=== PATIENT | male | born 1940 | race Caucasian/White ===

== ENCOUNTER → 2016-08-10 | Outpatient (CLI) | payer MEDICARE, OTHER ==
[2016-08-10 12:11] LABS: Basophils # (auto) 0.1 uL; Basophils % (auto) 2.8 % (0.0-2.0); Eosinophils # (auto) 0.2 uL; Eosinophils % (auto) 4.5 % (0.0-7.0); Hematocrit 39.3 % (41.0-53.0); Hemoglobin 13.2 g/dL (13.5-17.5); Lymphocytes # (auto) 1.4 uL; Mean Corpuscular Hemoglobin 33.1 pg (28.0-32.0); Mean Corpuscular Hgb Conc. 33.6 g/dL (32.0-36.0); Mean Corpuscular Volume 98.6 fL (80.0-100.0); Mean Platelet Volume 8.4 fL (7.4-10.4); Monocytes # (auto) 0.4 uL; Monocytes % (auto) 9.5 % (0.0-12.0); Neutrophils % (auto) 49.2 % (37.0-80.0); Platelet Count (auto) 229 10^3/uL (140-450); Red Cell Distribution Width 12.4 % (11.6-16.0); Urine Bilirubin Negative (Negative); Urine Blood Negative /uL (Negative); Urine Color Colorless (Yellow); Urine Glucose Normal (Normal); Urine Ketone Negative (Negative); Urine Nitrite Negative (Negative); Urine Urobilinogen Normal (Negative); White Blood Cell 4.1 10^3/uL (4.4-10.8)
[2016-08-10 12:52] LABS: Albumin 3.8 g/dL (3.4-5.0); Bilirubin, Direct 0.1 mg/dL (0-0.2); Bilirubin, Total 0.5 mg/dL (0.2-1.0); Calcium 8.7 mg/dL (8.5-10.1); Total Protein 7.2 g/dL (6.4-8.2)
== END | disposition home or self-care (01) ==
LOC: LAB 08:57
PROVIDERS: ATTEND Internal Medicine Cardiovascular Disease
DX: I10 Essential (primary) hypertension (principal); E78.00 Pure hypercholesterolemia, unspecified; K74.1 Hepatic sclerosis; E11.9 Type 2 diabetes mellitus without complications; R97.20 Elevated prostate specific antigen [PSA]; R53.81 Other malaise; E03.9 Hypothyroidism, unspecified; D64.9 Anemia, unspecified; E55.9 Vitamin D deficiency, unspecified; N39.0 Urinary tract infection, site not specified
CPT/HCPCS: 36415; 80048; 80061; 80076; 81003; 82306; 83036; 84153; 84403; 84443; 85025

== ENCOUNTER → 2017-05-09 | Outpatient (CLI) | payer MEDICARE, OTHER ==
[2017-05-09 12:18] LABS: Urine Bilirubin Negative (Negative); Urine Blood Negative /uL (Negative); Urine Color Yellow (Yellow); Urine Glucose Normal (Normal); Urine Ketone Negative (Negative); Urine Nitrite Negative (Negative); Urine Urobilinogen Normal (Negative); Urine pH 6.5 (5.0-8.0)
[2017-05-09 12:21] LABS: Basophils # (auto) 0 uL; Basophils % (auto) 0.9 % (0.0-2.0); Eosinophils # (auto) 0.2 uL; Eosinophils % (auto) 2.9 % (0.0-7.0); Hematocrit 40.1 % (41.0-53.0); Hemoglobin 13.5 g/dL (13.5-17.5); Lymphocytes # (auto) 1.6 uL; Lymphocytes % (auto) 29.3 % (10.0-50.0); Mean Corpuscular Hgb Conc. 33.6 g/dL (32.0-36.0); Mean Corpuscular Volume 101.1 fL (80.0-100.0); Mean Platelet Volume 8.3 fL (6.9-10.8); Monocytes # (auto) 0.5 uL; Monocytes % (auto) 9.4 % (0.0-12.0); Neutrophils # (auto) 3.1 uL; Neutrophils % (auto) 57.5 % (37.0-80.0); Nucleated Red Blood Cells % 0.2 %; Platelet Count (auto) 239 10^3/uL (140-450); White Blood Cell 5.4 10^3/uL (4.4-10.8)
[2017-05-09 12:35] LABS: BUN/Creatinine Ratio 16.7; Bilirubin, Direct 0.1 mg/dL (0-0.2); Bilirubin, Total 0.4 mg/dL (0.2-1.0); Calcium 9.8 mg/dL (8.5-10.1); Potassium 4.3 mmol/L (3.5-5.1); Total Protein 8.3 g/dL (6.4-8.2)
[2017-05-10 06:07] LABS: Prostate Specific Antigen 5.6 ng/mL (0.0-4.0)
[2017-05-10 08:06] LABS: PSA Free 1.87 ng/mL
== END | disposition home or self-care (01) ==
LOC: LAB 09:18
PROVIDERS: ATTEND Internal Medicine Cardiovascular Disease
DX: I10 Essential (primary) hypertension (principal); E78.00 Pure hypercholesterolemia, unspecified; K74.1 Hepatic sclerosis; E11.9 Type 2 diabetes mellitus without complications; R97.20 Elevated prostate specific antigen [PSA]; R53.81 Other malaise; D64.9 Anemia, unspecified; N39.0 Urinary tract infection, site not specified
CPT/HCPCS: 36415; 80048; 80061; 80076; 81003; 82306; 83036; 84153; 84154; 84403; 84443; 85025

== ENCOUNTER 2017-07-11 22:58 | Emergency (ER) | payer MEDICARE, OTHER ==
[~2017-07-11] VITALS: Ht 167.6 cm; Wt 75.3 kg
[2017-07-12 00:09] LABS: Basophils # (auto) 0 uL; Basophils % (auto) 0.4 % (0.0-2.0); Eosinophils # (auto) 0 uL; Eosinophils % (auto) 0.1 % (0.0-7.0); Hemoglobin 12.9 g/dL (13.5-17.5); Lymphocytes # (auto) 0.6 uL; Mean Corpuscular Hemoglobin 34.4 pg (28.0-32.0); White Blood Cell 9.1 10^3/uL (4.4-10.8)
[2017-07-12 00:11] LABS: Hematocrit 37.2 % (41.0-53.0); Lymphocytes % (auto) 6.4 % (10.0-50.0); Mean Corpuscular Hgb Conc. 34.6 g/dL (32.0-36.0); Mean Corpuscular Volume 99.5 fL (80.0-100.0); Mean Platelet Volume 7.5 fL (6.9-10.8); Monocytes # (auto) 1.1 uL; Monocytes % (auto) 11.8 % (0.0-12.0); Neutrophils # (auto) 7.4 uL; Neutrophils % (auto) 81.3 % (37.0-80.0); Platelet Count (auto) 221 10^3/uL (140-450); Red Cell Distribution Width 13.6 % (11.8-14.3)
[2017-07-12 00:22] LABS: INR 0.92 (0.9-1.15); Partial Thromboplastin Time 26.9 sec (22.64-33.71)
[2017-07-12 00:26] LABS: Albumin 3.7 g/dL (3.4-5.0); Anion Gap 9 (5-15); Blood Urea Nitrogen 18 mg/dL (7-18); Calcium 8.6 mg/dL (8.5-10.1); Carbon Dioxide 24 mmol/L (21-32); Chloride 97 mmol/L (98-107); GFR African American 76 mL/min; GFR Non-African American 62 mL/min; Glucose 114 mg/dL (74-106); Sodium 130 mmol/L (136-145)
[2017-07-12 00:32] LABS: Alkaline Phosphatase 66 U/L (45-117); Aspartate Aminotransferase 18 U/L (15-37); Bilirubin, Total 0.7 mg/dL (0.2-1.0); Total Protein 7.5 g/dL (6.4-8.2)
[2017-07-12 00:34] LABS: B-Type Natriuretic Peptide 77.67 pg/mL (0-100)
[2017-07-12 00:42] LABS: Temperature: 22.7 C (20.0-25.0)
[2017-07-12] MEDS ORDERED: ONDANSETRON HCL 4 MG/2 ML VIAL IV ONE (01:00)
[2017-07-12] MEDS ORDERED: MORPHINE SULF INJ 2 MG/ML SYRINGE 1ML IV ONE ×2 (01:00→04:45)
[2017-07-12 03:27] VITALS: BP 135/68
== END 2017-07-12 05:24 | disposition home or self-care (01) ==
LOC: ER 22:59
DX: S70.11XA Contusion of right thigh, initial encounter (principal); M25.561 Pain in right knee; M25.551 Pain in right hip; I11.0 Hypertensive heart disease with heart failure; I50.9 Heart failure, unspecified; W19.XXXA Unspecified fall, initial encounter; Y93.01 Activity, walking, marching and hiking; Y92.89 Other specified places as the place of occurrence of the external cause; Y99.8 Other external cause status
CPT/HCPCS: 36415; 73502; 73560; 73700; 80053; 83880; 84484; 85025; 85610; 85730; 93005; 96374; 96375; 96376; 99285; J2270; J2405

== ENCOUNTER → 2017-09-20 | Outpatient (CLI) | payer MEDICARE, OTHER ==
[2017-09-20 12:38] LABS: Urine Blood Negative /uL (Negative); Urine Specific Gravity 1.014 (1.001-1.035)
[2017-09-20 12:39] LABS: Basophils # (auto) 0 uL; Basophils % (auto) 1.1 % (0.0-2.0); Eosinophils # (auto) 0.2 uL; Eosinophils % (auto) 5.2 % (0.0-7.0); Hematocrit 37.5 % (41.0-53.0); Hemoglobin 12.6 g/dL (13.5-17.5); Lymphocytes # (auto) 1.6 uL; Lymphocytes % (auto) 37.9 % (10.0-50.0); Mean Corpuscular Hemoglobin 33.3 pg (28.0-32.0); Mean Corpuscular Hgb Conc. 33.5 g/dL (32.0-36.0); Mean Corpuscular Volume 99.4 fL (80.0-100.0); Monocytes # (auto) 0.4 uL; Monocytes % (auto) 10.3 % (0.0-12.0); Neutrophils # (auto) 1.9 uL; Neutrophils % (auto) 45.5 % (37.0-80.0); Nucleated Red Blood Cells % 0.3 %; Platelet Count (auto) 230 10^3/uL (140-450); Red Blood Cells 3.77 10^6/uL (4.5-5.90); Red Cell Distribution Width 12.9 % (11.8-14.3); White Blood Cell 4.2 10^3/uL (4.4-10.8)
== END | disposition home or self-care (01) ==
LOC: LAB 08:26
PROVIDERS: ATTEND Internal Medicine Cardiovascular Disease
DX: C61 Malignant neoplasm of prostate (principal); D64.9 Anemia, unspecified; N39.0 Urinary tract infection, site not specified
CPT/HCPCS: 36415; 81003; 84153; 84154; 85025

== ENCOUNTER → 2017-11-14 | Outpatient (CLI) | payer MEDICARE, OTHER | END | disposition home or self-care (01) | LOC: LAB 09:46 | PROVIDERS: ATTEND Internal Medicine Cardiovascular Disease | DX: C61 Malignant neoplasm of prostate (principal); I10 Essential (primary) hypertension; E11.9 Type 2 diabetes mellitus without complications | CPT/HCPCS: 84153 ==

== ENCOUNTER → 2018-03-21 | Outpatient (CLI) | payer MEDICARE, BC ==
[2018-03-21 12:05] LABS: Eosinophils # (auto) 0.3 uL; Nucleated Red Blood Cells % 0.6 %
[2018-03-21 12:08] LABS: Basophils # (auto) 0 uL; Basophils % (auto) 1.1 % (0.0-2.0); Eosinophils % (auto) 7.3 % (0.0-7.0); Hematocrit 35.2 % (41.0-53.0); Hemoglobin 12.3 g/dL (13.5-17.5); Lymphocytes # (auto) 1.2 uL; Lymphocytes % (auto) 29.9 % (10.0-50.0); Mean Corpuscular Hemoglobin 35.1 pg (28.0-32.0); Mean Corpuscular Hgb Conc. 34.9 g/dL (32.0-36.0); Mean Corpuscular Volume 100.6 fL (80.0-100.0); Monocytes # (auto) 0.5 uL; Monocytes % (auto) 12.6 % (0.0-12.0); Neutrophils % (auto) 49.1 % (37.0-80.0); Platelet Count (auto) 229 10^3/uL (140-450); Red Cell Distribution Width 14.3 % (11.8-14.3)
[2018-03-21 12:14] LABS: Urine Blood Negative /uL (Negative); Urine Specific Gravity 1.016 (1.001-1.035)
[2018-03-21 12:20] LABS: Albumin 3.5 g/dL (3.4-5.0); BUN/Creatinine Ratio 16.4; Bilirubin, Total 0.6 mg/dL (0.2-1.0); Calcium 8.7 mg/dL (8.5-10.1); Potassium 4.1 mmol/L (3.5-5.1); Total Protein 7.1 g/dL (6.4-8.2)
[2018-03-21 12:26] LABS: Free T4 (Free Thyroxine) 1.14 ng/dL (0.89-1.76)
[2018-03-21 12:57] LABS: Prostate Specific Antigen 6.85 ng/mL (0.0-4.0)
== END | disposition home or self-care (01) ==
LOC: LAB 08:15
PROVIDERS: ATTEND Internal Medicine
DX: Z00.01 Encounter for general adult medical examination with abnormal findings (principal); I11.0 Hypertensive heart disease with heart failure; I50.9 Heart failure, unspecified; E03.9 Hypothyroidism, unspecified; E11.9 Type 2 diabetes mellitus without complications; E55.9 Vitamin D deficiency, unspecified; E29.1 Testicular hypofunction; C61 Malignant neoplasm of prostate; D51.9 Vitamin B12 deficiency anemia, unspecified; N39.0 Urinary tract infection, site not specified
CPT/HCPCS: 36415; 80053; 80061; 81003; 82306; 82607; 83036; 84153; 84154; 84403; 84439; 84443; 85025

== ENCOUNTER → 2018-06-21 | Outpatient (CLI) | payer MEDICARE, BC ==
[~2018-06-21] VITALS: Ht 160 cm; Wt 77.1 kg
[~2018-06-21] MED LIST: ADENOSINE 90 MG/30 ML INJ IV ONE
== END | disposition home or self-care (01) ==
LOC: Rad HDHVI 13:38
PROVIDERS: ATTEND Internal Medicine
DX: I11.0 Hypertensive heart disease with heart failure (principal); I50.9 Heart failure, unspecified; E78.5 Hyperlipidemia, unspecified; M48.00 Spinal stenosis, site unspecified
CPT/HCPCS: 78452; 93005; 96374; 96375; A9500; J0153

== ENCOUNTER → 2018-08-14 | Outpatient (CLI) | payer MEDICARE, BC ==
[2018-08-14 12:22] LABS: Urine Blood Negative /uL (Negative); Urine Specific Gravity 1.006 (1.001-1.035)
[2018-08-14 12:23] LABS: Basophils # (auto) 0 uL; Basophils % (auto) 1.3 % (0.0-2.0); Eosinophils # (auto) 0.2 uL; Hemoglobin 12.5 g/dL (13.5-17.5); Lymphocytes # (auto) 1.4 uL; Neutrophils # (auto) 1.7 uL; White Blood Cell 3.8 10^3/uL (4.4-10.8)
[2018-08-14 12:26] LABS: Eosinophils % (auto) 5.9 % (0.0-7.0); Hematocrit 36.6 % (41.0-53.0); Lymphocytes % (auto) 37.3 % (10.0-50.0); Mean Corpuscular Hemoglobin 34.3 pg (28.0-32.0); Mean Corpuscular Hgb Conc. 34.3 g/dL (32.0-36.0); Monocytes # (auto) 0.4 uL; Monocytes % (auto) 11.7 % (0.0-12.0); Neutrophils % (auto) 43.8 % (37.0-80.0); Nucleated Red Blood Cells % 0.4 %; Platelet Count (auto) 195 10^3/uL (140-450); Red Blood Cells 3.66 10^6/uL (4.5-5.90)
[2018-08-14 12:42] LABS: Potassium 4.4 mmol/L (3.5-5.1)
[2018-08-14 12:52] LABS: Albumin 3.8 g/dL (3.4-5.0); BUN/Creatinine Ratio 12.6; Bilirubin, Total 0.6 mg/dL (0.2-1.0); Calcium 8.6 mg/dL (8.5-10.1); Total Protein 7.3 g/dL (6.4-8.2)
[2018-08-14 12:53] LABS: Free T4 (Free Thyroxine) 1.27 ng/dL (0.89-1.76)
[2018-08-14 13:16] LABS: Prostate Specific Antigen 4.3 ng/mL (0.0-4.0)
== END | disposition home or self-care (01) ==
LOC: LAB 08:13
PROVIDERS: ATTEND Internal Medicine
DX: E03.9 Hypothyroidism, unspecified (principal); E55.9 Vitamin D deficiency, unspecified; E11.9 Type 2 diabetes mellitus without complications; E29.1 Testicular hypofunction; C61 Malignant neoplasm of prostate; D51.9 Vitamin B12 deficiency anemia, unspecified; N39.0 Urinary tract infection, site not specified
CPT/HCPCS: 36415; 80053; 80061; 81003; 82306; 82607; 83036; 84153; 84154; 84403; 84439; 84443; 85025; 87086

== ENCOUNTER → 2018-10-10 | Outpatient (CLI) | payer MEDICARE, BC | END | disposition home or self-care (01) | LOC: LAB 08:56 | PROVIDERS: ATTEND Internal Medicine | DX: C61 Malignant neoplasm of prostate (principal) | CPT/HCPCS: 84153; 84154 ==

== ENCOUNTER → 2018-10-20 | Outpatient (CLI) | payer MEDICARE, BC ==
[2018-10-20 11:58] LABS: Hematocrit 37.1 % (41.0-53.0); Hemoglobin 12.4 g/dL (13.5-17.5); Mean Corpuscular Hemoglobin 33.8 pg (28.0-32.0); Mean Corpuscular Hgb Conc. 33.4 g/dL (32.0-36.0); Mean Corpuscular Volume 101.1 fL (80.0-100.0); Platelet Count (auto) 192 10^3/uL (140-450); Red Blood Cells 3.67 10^6/uL (4.5-5.90); Red Cell Distribution Width 13.4 % (11.8-14.3); White Blood Cell 3.1 10^3/uL (4.4-10.8)
[2018-10-20 12:19] LABS: Basophils % (auto) 1.2 % (0.0-2.0); Eosinophils % (auto) 5.6 % (0.0-7.0); Lymphocytes # (auto) 1.3 uL; Lymphocytes % (auto) 41.9 % (10.0-50.0); Monocytes # (auto) 0.5 uL; Monocytes % (auto) 17.4 % (0.0-12.0); Neutrophils % (auto) 33.9 % (37.0-80.0); Nucleated Red Blood Cells % 0.7 %
[2018-10-20 12:20] LABS: Basophils # (auto) 0 uL; Eosinophils # (auto) 0.2 uL
[2018-10-20 13:13] LABS: Albumin 3.6 g/dL (3.4-5.0); Calcium 8.3 mg/dL (8.5-10.1)
[2018-10-20 13:19] LABS: Bilirubin, Total 0.5 mg/dL (0.2-1.0)
== END | disposition home or self-care (01) ==
LOC: Rad HDHVI 08:39
PROVIDERS: ATTEND Internal Medicine Cardiovascular Disease
DX: R06.02 Shortness of breath (principal); D64.9 Anemia, unspecified; M46.00 Spinal enthesopathy, site unspecified; I11.0 Hypertensive heart disease with heart failure; I50.9 Heart failure, unspecified
CPT/HCPCS: 36415; 71046; 80053; 85007; 85027

== ENCOUNTER → 2019-01-02 | Outpatient (CLI) | payer MEDICARE, BC ==
[2019-01-02 14:00] VITALS: BP 150/67
--- NOTE | 2019-01-02 14:00 | NUR ---
PT. TO CHF CLINIC WITH DAUGHTER FOR EVAL AND TX FOR C/O INTERMITANT EPISODES OF LOW BLOOD PRESSURE, WITH 2 FALLS AT HOME WITHIN LAST MONTH. PT. STATES FALL WAS SUBSEQUENT TO DIZZINESS AFTER SITTING AND HAD NO SYNCOPAL EPISODES. AOX4, PWD, WITH HOME OMRON B/P CUFF BROUGHT IN FOR CORRELATION WITH CLINIC B/P.
--- NOTE | 2019-01-02 14:30 | NUR ---
UPON FURTHER INVESTIGATION OF MED REC., PT. HAS BEEN TAKING HIS LISINOPRIL/HCTZ, NORVASC, AND FLOWMAX ALL AT THE SAME TIME IN THE MORNING. HOME CUFF CORRELATES WITH CLINIC BLOOD PRESSURE WITHIN 3-5 MM/HG ON BOTH SYSTOLIC AND DIASTOLIC NUMBERS.. ORDERS FOR LABS RECEIVED AND CARRIED OUT.
--- NOTE | 2019-01-02 15:15 | NUR ---
LABS DRAWN AND SENT PER MD ORDER.
[2019-01-02 15:30] VITALS: BP 144/68
--- NOTE | 2019-01-02 15:30 | NUR ---
Discharge Instructions See e-MAR for any mediations given with this visit. Patient education given on disease process. Patient verbalized understanding. Previous labs reviewed. Patient discharged in stable condition with after care instructions and follow up appointment. PT. AND DAUGHTER INSTRUCTED TO TAKE LISINOPRIL 20 MG PO IN AM, WITH NEW RX GIVEN TO PT. PT. INSTRUCTED TO ONLY USE LISINOPRIL/HCTZ IF LOWER EXT EDEMA OCCURS AND NOTICABLE WT. GAIN. PT. INSTRUCTED TO TAKE FLOMAX 0.4MG, AND NORVASC 5 MG PO AT NIGHT TIME. PT. ALSO INSTRUCTED TO MONITOR B/P IN AM AND PM BEFORE MEDS.,AND TO FOLLOW UP WITH CLINIC PRN. PT. AND DAUGHTER DEMONSTRATED GOOD KNOWLEDGE OF MED REC CHANGES AT TIME OF DISCHARGE. PT. ALSO INSTRUCTED TO ALTERNATE MOIST HEAT AND COLD PACKS TO RT SIDE STATUS POST FALL ALMOST 1 MONTH AGO, AND GIVEN ADDITIONAL INSTRUCTIONS ON ORTHOSTATIC MAINTAINENCE.
[2019-01-02 16:10] LABS: BUN/Creatinine Ratio 15.2; Calcium 8.4 mg/dL (8.5-10.1); Magnesium 2.3 mg/dL (1.6-2.6); Potassium 4.3 mmol/L (3.5-5.1)
[2019-01-02 16:17] LABS: Basophils # (auto) 0.1 uL; Basophils % (auto) 1.2 % (0.0-2.0); Eosinophils # (auto) 0.3 uL; Eosinophils % (auto) 6.2 % (0.0-7.0); Hematocrit 34.3 % (41.0-53.0); Hemoglobin 11.7 g/dL (13.5-17.5); Lymphocytes # (auto) 1.3 uL; Mean Corpuscular Hemoglobin 33.8 pg (28.0-32.0); Mean Corpuscular Hgb Conc. 34.2 g/dL (32.0-36.0); Mean Corpuscular Volume 98.7 fL (80.0-100.0); Monocytes # (auto) 0.5 uL; Monocytes % (auto) 11.3 % (0.0-12.0); Neutrophils # (auto) 2.2 uL; Neutrophils % (auto) 51.3 % (37.0-80.0); Nucleated Red Blood Cells % 0.2 %; Platelet Count (auto) 196 10^3/uL (140-450); Red Blood Cells 3.47 10^6/uL (4.5-5.90); White Blood Cell 4.4 10^3/uL (4.4-10.8)
== END | disposition home or self-care (01) ==
LOC: CHF HDHVI 13:45
PROVIDERS: ATTEND Internal Medicine
DX: D64.9 Anemia, unspecified (principal); E83.40 Disorders of magnesium metabolism, unspecified; I10 Essential (primary) hypertension; I25.10 Atherosclerotic heart disease of native coronary artery without angina pectoris; E11.9 Type 2 diabetes mellitus without complications
CPT/HCPCS: 36415; 80048; 83735; 85025; G0463

== ENCOUNTER → 2019-01-25 | Outpatient (CLI) | payer MEDICARE, BC ==
[~2019-01-25] VITALS: Ht 30.5 cm; Wt 77.1 kg
[~2019-01-25] MED LIST changes: -ADENOSINE 90 MG/30 ML INJ IV ONE; +CYANOCOBALAMIN (B-12) 1000 MCG/1 ML VIAL IM ONE; +CYANOCOBALAMIN (B-12) 1000 MCG/1 ML VIAL ONE
--- NOTE | 2019-01-25 10:30 | NUR ---
PT. TO CHF CLINIC FOR EVAL. OF RECENT EPISODES OF LOWER EXT. EDEMA AND ELEVATED B/P. PT. WAS INSTRUCTED TO RESUME HIS LISINOPRIL/HCT IN AM AND NOTICED A GOOD IMPROVEMENT IN EDEMA. PT ALSO CONTINUED HIS NORVASC 5MG Q HS, PREVIOUSLY INSTRUCTED TO DO. SEE NSG ASSESS. ORDERS RECEIVED AND CARRIED OUT.
--- NOTE | 2019-01-25 10:45 | NUR ---
LABS DRAWN AND SENT PER MD ORDER.
--- NOTE | 2019-01-25 10:49 | NUR ---
MEDS: PT. MEDICATED WITH VIT. B12 1000MCG IM PER MD ORDER.
[2019-01-25 11:05] VITALS: BP 138/66
--- NOTE | 2019-01-25 11:05 | NUR ---
Discharge Instructions See e-MAR for any mediations given with this visit. Patient education given on disease process. Patient verbalized understanding. Previous labs reviewed. Patient discharged in stable condition with after care instructions and follow up appointment. STAFF WILL CALL PT. FOR LAB RESULTS . PT. CONTINUES TO DO TWICE A DAY B/P AND PULSE MONITORING.
[2019-01-25 12:57] LABS: BUN/Creatinine Ratio 13.9; Calcium 8.8 mg/dL (8.5-10.1); Magnesium 2.4 mg/dL (1.6-2.6); Potassium 4.4 mmol/L (3.5-5.1)
== END | disposition home or self-care (01) ==
LOC: CHF HDHVI 10:41
PROVIDERS: ATTEND Internal Medicine Cardiovascular Disease
DX: D64.9 Anemia, unspecified (principal); I25.10 Atherosclerotic heart disease of native coronary artery without angina pectoris; E83.40 Disorders of magnesium metabolism, unspecified; I10 Essential (primary) hypertension; E11.9 Type 2 diabetes mellitus without complications
CPT/HCPCS: 36415; 80048; 83735; 96372; G0463; J3420

== ENCOUNTER → 2019-09-28 | Outpatient (CLI) | payer MEDICARE, BC ==
[2019-09-28 12:06] LABS: Urine Blood Negative /uL (Negative); Urine Specific Gravity 1.012 (1.001-1.035)
[2019-09-28 12:17] LABS: Albumin 3.6 g/dL (3.4-5.0); Calcium 8.7 mg/dL (8.5-10.1); Potassium 4.2 mmol/L (3.5-5.1)
[2019-09-28 12:20] LABS: BUN/Creatinine Ratio 13.7; Bilirubin, Total 0.4 mg/dL (0.2-1.0); Total Protein 7.2 g/dL (6.4-8.2)
== END | disposition home or self-care (01) ==
LOC: LAB 08:50
PROVIDERS: ATTEND Internal Medicine
DX: C61 Malignant neoplasm of prostate (principal); N39.0 Urinary tract infection, site not specified
CPT/HCPCS: 36415; 80053; 81003; 84153; 84154; 87086

== ENCOUNTER → 2019-11-26 | Outpatient (CLI) | payer MEDICARE, BC | END | disposition home or self-care (01) | LOC: Rad HDHVI 13:15 | PROVIDERS: ATTEND Internal Medicine | DX: I10 Essential (primary) hypertension (principal); R06.02 Shortness of breath; R55 Syncope and collapse | CPT/HCPCS: 93880 ==

== ENCOUNTER → 2020-01-18 | Outpatient (CLI) | payer MEDICARE, BC ==
[~2020-01-18] MED LIST changes: +ACET-1304 PO; +AMLO5TAB15 PO; +ASPI-378 PO; +CLOP75TA28 PO; -CYANOCOBALAMIN (B-12) 1000 MCG/1 ML VIAL IM ONE; -CYANOCOBALAMIN (B-12) 1000 MCG/1 ML VIAL ONE; +LISI2.5T47 PO; +MULT-228 PO; +SIMV-8 PO; +TAMS0.4C36 PO
[2020-01-18 08:50] VITALS: BP 140/71
--- NOTE | 2020-01-18 08:50 | NUR ---
PATIENT INTO CLINIC FOR SCHEDULED PREOP APPOINTMENT, AAOX4, AMBULATORY, BREATHING EVEN AND UNLABORED.
[2020-01-18 09:19] VITALS: BP 143/67
--- NOTE | 2020-01-18 09:19 | NUR ---
Pre-Op Discharge Summary: See e-MAR for any medications given for this visit. Pre-op orders received and carried out per MD of EKG, LABS and chest xrays. Patient given a copy of EKG with instructions to go to [facility] out patient for further follow up care.
[2020-01-18 12:15] LABS: Basophils # (auto) 0.1 10 ^3/uL (0-0.2); Basophils % (auto) 1.9 % (0.0-2.0); Eosinophils # (auto) 0.3 10 ^3/uL (0-0.8); Eosinophils % (auto) 8.6 % (0.0-7.0); Hematocrit 37.6 % (41.0-53.0); Hemoglobin 12.6 g/dL (13.5-17.5); Lymphocytes # (auto) 0.8 10 ^3/uL (0.4-5.4); Lymphocytes % (auto) 24.2 % (10.0-50.0); Mean Corpuscular Hemoglobin 33.2 pg (28.0-32.0); Mean Corpuscular Hgb Conc. 33.6 g/dL (32.0-36.0); Monocytes # (auto) 0.5 10 ^3/uL (0-1.3); Monocytes % (auto) 14.6 % (0.0-12.0); Neutrophils # (auto) 1.7 10 ^3/uL (1.6-8.6); Neutrophils % (auto) 50.7 % (37.0-80.0); Platelet Count (auto) 192 10^3/uL (140-450); Red Cell Distribution Width 14.1 % (11.8-14.3); White Blood Cell 3.3 10^3/uL (4.4-10.8)
[2020-01-18 12:18] LABS: INR 1.01 (0.9-1.15); Partial Thromboplastin Time 27.1 sec (23.64-32.05)
[2020-01-18 13:39] LABS: BUN/Creatinine Ratio 14.3; Calcium 8.7 mg/dL (8.5-10.1)
== END | disposition home or self-care (01) ==
LOC: Rad HDHVI 08:39
PROVIDERS: ATTEND Internal Medicine
DX: I70.0 Atherosclerosis of aorta (principal); Z01.818 Encounter for other preprocedural examination
CPT/HCPCS: 36415; 71046; 80048; 85025; 85610; 85730; 93005; G0463

== ENCOUNTER 2020-01-23 07:25 | Inpatient (IN) | payer MEDICARE, OTHER ==
[~2020-01-23] VITALS: Ht 167.6 cm; Wt 76.3 kg
[~2020-01-23 07:25] MED LIST changes: -ACET-1304 PO
[2020-01-23] MEDS ORDERED: IOHEXOL 350 MG/ML 100ML IJ ONE ×3 (07:41→11:13)
[2020-01-23] MEDS ORDERED: LIDOCAINE 2%HCL (LOCAL ANESTH.) INJ 20ML MDV ONE (07:41)
[2020-01-23] MEDS ORDERED: GLYCOPYRROLATE 0.2 MG/ML 1ML VIAL ONE (09:03)
[2020-01-23] MEDS ORDERED: ANGIOMAX 250 MG VIAL IV ONE ×2 (09:30→10:33)
[2020-01-23] MEDS ORDERED: SODIUM CHL 0.9% 50 ML ONE ×2 (09:30→10:33)
[2020-01-23] MEDS ORDERED: IODIXANOL 320MG/ML 100ML BTL IV ONE (09:30)
[2020-01-23] MEDS ORDERED: HEPARIN SODIUM (PORCINE) 5000 UNITS/ML 1ML VIAL ONE (09:42)
[2020-01-23] MEDS ORDERED: ASPirin 81 mg TAB ONE (11:32)
[2020-01-23] MEDS ORDERED: CLOPIDOGREL BISULFATE 75 MG TAB ONE (11:32)
[2020-01-23] MEDS ORDERED: ONDANSETRON HCL 4 MG/2 ML VIAL IV PRN (15:00)
[2020-01-23] MEDS ORDERED: ACETAMINOPHEN 500 MG TAB PO PRN (15:00)
[2020-01-23] MEDS ORDERED: HYDROcodone-ACET 5/325MG TAB PO PRN (15:00)
[2020-01-23] MEDS ORDERED: NITROGLYCERIN 0.4 MG SL TAB SL PRN (15:00)
--- NOTE | 2020-01-23 15:55 | NUR ---
CAME FROM [facility], ALERT AND ORIENTED X4, NOT IN DISTRESS, CLEAR LS IN BILATERAL UPPER AND LOWER LUNG LOBES, DEEP BREATHING AND COUGHING ENCOURAGED, DEMONSTRATED AND VERBALIZED UNDERSTANDING, RR=18 SAT=97%, SR ON TELE MONITOR R=84, ABDOMEN SOFT AND ROUND WITH HYPOACTIVE BS, LAST BM=01/22/20 REPORTED, RT. GROIN ANGIO SITE INTACT COVERED WITH TEGA DERM DRESSING, NO REDNESS EDEMA OR ECCHYMOSES NOTED, GENERAL SKIN INTACT WARM TO TOUCH, RADIAL AND PEDAL PULSES PALPABLE, CAP REFILL <3 SECONDS, AMBULATED WITH CAN TO BR AND BACK TO THE BED, TOLERATED WELL, DENIED PAIN, RESTING ON BED, VS T=97.6 RR=18 SAT=97% RA P=63 GD=536/71, PHYSICALLY AND NEUROLOGICALLY COMPETENT, COOPERATED WITH INITIAL ADMISSION ASSESSMENT WELL, HEAD OF BED ELEVATED, BED ON LOW POSITION, RAILS UP X2, CALL LIGHT ON REACH, WILL CONTINUE MONITORING.
[2020-01-23] MEDS: SOD CHL 0.45% 1,000 ML IV SCH (16:12)
[2020-01-23 16:15] VITALS: BP 123/64
[2020-01-23 16:20] VITALS: BP 141/71
[2020-01-23] MEDS ORDERED: TAMSULOSIN HYDROCHLORIDE 0.4 MG CAP PO SCH (18:00)
[2020-01-23 18:15] VITALS: BP 132/71
--- NOTE | 2020-01-23 19:07 | NUR ---
NOT IN DISTRESS, DENIED PAIN, RESTING ON BED, REPORT WAS GIVEN TO THE PROGRAM/MUSIC DIRECTOR RN.
--- NOTE | 2020-01-23 19:35 | NUR ---
Opening Shift Note Assumed care of patient, awake and alert. No S/S of distress/SOB or pain. Safety measures in place bed in lowest position, side rails up x2, and call light within reach. Patient S/P cath procedure. Dressing clean, dry, and intact. Instructed on POC and to call for assist PRN, will continue to monitor for changes Q1hr and PRN.
[2020-01-23 21:55] VITALS: BP 124/62
[2020-01-24] MEDS: SOD CHL 0.45% 1,000 ML IV SCH ×2 (02:50→16:06)
[2020-01-24 05:00] VITALS: BP 122/58
[2020-01-24 09:00] VITALS: BP_SYST 131; BP_SYST 134; BP_DIAS 65; BP_DIAS 66
--- NOTE | 2020-01-24 09:32 | NUR ---
PT REFUSED LISINOPRIL. HE REPORTS IT MAKES HIS BP DROP TOO LOW AND HE FEELS LIKE HE MAY FALL. LISINOPRIL HELD.
[2020-01-24] MEDS ORDERED: CLOPIDOGREL BISULFATE 75 MG TAB PO SCH (10:00)
[2020-01-24] MEDS ORDERED: MULTIPLE VITAMIN TAB PO SCH (10:00)
[2020-01-24] MEDS ORDERED: PATIENTS OWN MEDICATION (Lisinopril 2.5 MG) PO SCH (10:00)
[2020-01-24] MEDS ORDERED: LISINOPRIL 5 MG TAB PO SCH (10:00)
[2020-01-24] MEDS ORDERED: ASPirin-EC 81 mg tab PO SCH (10:00)
[2020-01-24] MEDS ORDERED: PATIENTS OWN MEDICATION (Simvastatin 20 MG) PO SCH (10:00)
[2020-01-24] MEDS ORDERED: amLODIPine BESYLATE 5 MG TAB PO SCH (10:00)
[2020-01-24] MEDS ORDERED: ATORVASTATIN 20 MG TAB PO SCH (10:00)
--- NOTE | 2020-01-24 11:43 | NUR ---
PT REPORTS HE SPOKE WITH DR WHITLOCK AND MD REPORTS PT IS DISCHARGED. NO DC ORDER IN , CALLED DR WHITLOCK, [employer] REPORTS MD IS IN [employer], LEFT MESSAGE REQUESTING CALL BACK. PT REPORTS HE WANTS TO GO HOME SOON POSSIBLE.
--- NOTE | 2020-01-24 12:02 | NUR ---
DR WHITLOCK CALLED BACK, HE REPORTS TO CALL DR CRUZ. CALLED DR CRUZ, SHE REPORTS PT IS CLEARED FROM CARDIO STANDPOINT BUT PT HAS TO BE DC'D BY HOSPITALIST. SHE REPORTS PT ALREADY HAS FOLLOW UP APPOINTMENT SCHEDULED WITH HIS PRIMARY DR WHITLOCK.
[2020-01-24 15:18] VITALS: BP 134/66
--- NOTE | 2020-01-24 16:08 | NUR ---
Discharge instructions given as ordered. Encourage to follow up with PMD Dr Alvarez as instructed. All questions and concerns addressed. Patient verbalized understanding. Medication reconciliation form completed and copy given to patient. IV's removed with catheters intact, pressure dressings applied. Telemetry unit returned to ICU. Patient taken to vehicle via wheelchair with all personal belongings, accompanied by staff. No distress noted at time of departure.
== END 2020-01-24 16:20 | disposition home or self-care (01) | DRG 36 ==
LOC: CATH 07:25 → TELE-WESTW 15:43
PROVIDERS: ADMIT Internal Medicine; ATTEND Internal Medicine
PROC: B3151ZZ Fluoroscopy of Bilateral Common Carotid Arteries using Low Osmolar Contrast (ICD-10-PCS; principal; 2020-01-23)
PROC: 037K3DZ Dilation of Right Internal Carotid Artery with Intraluminal Device, Percutaneous Approach (ICD-10-PCS; 2020-01-23)
PROC: B31R1ZZ Fluoroscopy of Intracranial Arteries using Low Osmolar Contrast (ICD-10-PCS; 2020-01-23)
DX: I65.23 Occlusion and stenosis of bilateral carotid arteries (principal); I10 Essential (primary) hypertension; E78.5 Hyperlipidemia, unspecified; N40.0 Benign prostatic hyperplasia without lower urinary tract symptoms; Z60.2 Problems related to living alone; Z86.73 Personal history of transient ischemic attack (TIA), and cerebral infarction without residual deficits; Z79.899 Other long term (current) drug therapy; Z11.59 Encounter for screening for other viral diseases
CPT/HCPCS: 87635; 99152; 99153; G0378; J7042; Q9967

== ENCOUNTER → 2020-02-11 | Outpatient (CLI) | payer MEDICARE, BC ==
[~2020-02-11] VITALS: Ht 167.6 cm; Wt 75.3 kg
[~2020-02-11] MED LIST changes: +ACET-1304 PO
[2020-02-11 08:10] VITALS: BP 145/66
--- NOTE | 2020-02-11 08:10 | NUR ---
CLINIC PT ARRIVED TO THE CHF CLINIC FOR PRE OP LABS, EKG. FOR THE CXR THE PT WILL BE SENT TO [facility]. A/OX4, AMBULATORY.
--- NOTE | 2020-02-11 08:21 | NUR ---
EKG ADMIN BY ANKIT BHATTI SR 63
[2020-02-11 08:35] VITALS: BP 141/62
--- NOTE | 2020-02-11 08:35 | NUR ---
Pre-Op Discharge Summary: See e-MAR for any medications given for this visit. Pre-op orders received and carried out per MD of EKG, LABS. Patient given a copy of EKG with instructions to go to [facility] FOR CXR AND out patient for further follow up care. PT VERBALIZED UNDERSTANDING. NOTE EKG ADMIN BY ANKIT BHATTI
[2020-02-11 11:46] LABS: Basophils # (auto) 0 10 ^3/uL (0-0.2); Basophils % (auto) 1.1 % (0.0-2.0); Eosinophils # (auto) 0.1 10 ^3/uL (0-0.8); Eosinophils % (auto) 5.5 % (0.0-7.0); Hematocrit 37.2 % (41.0-53.0); Hemoglobin 12.4 g/dL (13.5-17.5); Lymphocytes # (auto) 0.8 10 ^3/uL (0.4-5.4); Lymphocytes % (auto) 30.8 % (10.0-50.0); Mean Corpuscular Hemoglobin 33.3 pg (28.0-32.0); Mean Corpuscular Hgb Conc. 33.3 g/dL (32.0-36.0); Monocytes # (auto) 0.4 10 ^3/uL (0-1.3); Monocytes % (auto) 15.6 % (0.0-12.0); Neutrophils # (auto) 1.2 10 ^3/uL (1.6-8.6); Nucleated Red Blood Cells % 0.1 %; Platelet Count (auto) 194 10^3/uL (140-450); Red Blood Cells 3.72 10^6/uL (4.5-5.90); Red Cell Distribution Width 13.9 % (11.8-14.3); White Blood Cell 2.5 10^3/uL (4.4-10.8)
[2020-02-11 12:03] LABS: BUN/Creatinine Ratio 18.5; Calcium 8.4 mg/dL (8.5-10.1)
[2020-02-11 12:05] LABS: Partial Thromboplastin Time 27.1 sec (23.64-32.05)
== END | disposition home or self-care (01) ==
LOC: Rad HDHVI 07:51
PROVIDERS: ATTEND Internal Medicine Cardiovascular Disease
DX: Z01.812 Encounter for preprocedural laboratory examination (principal); I10 Essential (primary) hypertension; D64.9 Anemia, unspecified; R79.1 Abnormal coagulation profile
CPT/HCPCS: 36415; 80048; 85025; 85610; 85730; 93005; G0463

== ENCOUNTER 2020-02-13 06:59 | Day surgery (SDC) | payer MEDICARE, OTHER ==
[~2020-02-13] VITALS: Ht 167.6 cm; Wt 75.3 kg
[~2020-02-13 06:59] MED LIST changes: -LISI2.5T47 PO
[2020-02-13] MEDS ORDERED: LIDOCAINE 2%HCL (LOCAL ANESTH.) INJ 20ML MDV ONE (07:52)
[2020-02-13] MEDS ORDERED: IODIXANOL 320MG/ML 100ML BTL IV ONE (07:52)
[2020-02-13] MEDS ORDERED: ATROPINE SULF 1 MG/10ml SYR ONE (08:02)
[2020-02-13] MEDS ORDERED: GLYCOPYRROLATE 0.2 MG/ML 1ML VIAL ONE (08:03)
[2020-02-13] MEDS ORDERED: IOHEXOL 350 MG/ML 100ML IJ ONE (08:03)
[2020-02-13] MEDS ORDERED: DOPamine 1600MCG/ML D5W 0 ML IV ONE (08:03)
[2020-02-13] MEDS ORDERED: SODIUM CHL 0.9% 50 ML ONE ×2 (08:03→09:21)
[2020-02-13] MEDS ORDERED: ANGIOMAX 250 MG VIAL IV ONE ×2 (08:03→09:21)
[2020-02-13] MEDS ORDERED: PHENYLEPHRINE HCL 10 MG/ML VL ONE (08:03)
[2020-02-13] MEDS ORDERED: diphenhdrAMINE HCL 50 MG/1 ML VL ONE (09:54)
[2020-02-13] MEDS ORDERED: hydrALAZINE HCL 20 MG/ML VL ONE (09:56)
[2020-02-13] MEDS ORDERED: HYDROcodone-ACET 5/325MG TAB PO PRN (10:45)
[2020-02-13] MEDS ORDERED: ONDANSETRON HCL 4 MG/2 ML VIAL IV PRN (10:45)
[2020-02-13] MEDS ORDERED: ACETAMINOPHEN 500 MG TAB PO PRN (10:45)
== END 2020-02-13 14:23 | disposition home or self-care (01) ==
LOC: CATH 06:59
PROVIDERS: ATTEND Internal Medicine
DX: I65.22 Occlusion and stenosis of left carotid artery (principal); I10 Essential (primary) hypertension; E78.00 Pure hypercholesterolemia, unspecified; M19.90 Unspecified osteoarthritis, unspecified site; Z11.59 Encounter for screening for other viral diseases; Z98.890 Other specified postprocedural states; Z79.899 Other long term (current) drug therapy
CPT/HCPCS: 36224; C1760; C1769; C1887; C1894; J0360; J0583; J1200; J1644; J7030; Q9967; U0003; 37218; 99152; 99153

== ENCOUNTER → 2020-08-04 | Outpatient (CLI) | payer MEDICARE, BC ==
[2020-08-04 11:48] LABS: Basophils # (auto) 0 10 ^3/uL (0-0.2); Basophils % (auto) 1.1 % (0.0-2.0); Eosinophils # (auto) 0.1 10 ^3/uL (0-0.8); Hematocrit 38.7 % (41.0-53.0); Lymphocytes # (auto) 1.3 10 ^3/uL (0.4-5.4); Lymphocytes % (auto) 37.4 % (10.0-50.0); Mean Corpuscular Hemoglobin 33.9 pg (28.0-32.0); Mean Corpuscular Hgb Conc. 33.7 g/dL (32.0-36.0); Mean Corpuscular Volume 100.6 fL (80.0-100.0); Monocytes # (auto) 0.4 10 ^3/uL (0-1.3); Monocytes % (auto) 10.8 % (0.0-12.0); Neutrophils # (auto) 1.6 10 ^3/uL (1.6-8.6); Neutrophils % (auto) 46.7 % (37.0-80.0); Nucleated Red Blood Cells % 0.1 %; Platelet Count (auto) 196 10^3/uL (140-450); Red Blood Cells 3.85 10^6/uL (4.5-5.90); Red Cell Distribution Width 13.6 % (11.8-14.3); White Blood Cell 3.5 10^3/uL (4.4-10.8)
[2020-08-04 11:51] LABS: Urine Blood Negative /uL (Negative); Urine Specific Gravity 1.014 (1.001-1.035)
[2020-08-04 12:02] LABS: Albumin 3.4 g/dL (3.4-5.0)
[2020-08-04 12:10] LABS: BUN/Creatinine Ratio 9.3; Bilirubin, Total 0.4 mg/dL (0.2-1.0); Calcium 8.9 mg/dL (8.5-10.1); Total Protein 7.3 g/dL (6.4-8.2)
[2020-08-04 12:12] LABS: Free T4 (Free Thyroxine) 1.13 ng/dL (0.89-1.76)
[2020-08-04 12:15] LABS: Prostate Specific Antigen 4.08 ng/mL (0.0-4.0)
== END | disposition home or self-care (01) ==
LOC: LAB 08:32
PROVIDERS: ATTEND Internal Medicine Cardiovascular Disease
DX: C61 Malignant neoplasm of prostate (principal); D51.3 Other dietary vitamin B12 deficiency anemia; I10 Essential (primary) hypertension; E11.9 Type 2 diabetes mellitus without complications; E55.9 Vitamin D deficiency, unspecified; D64.9 Anemia, unspecified; R00.2 Palpitations; R53.1 Weakness; R30.0 Dysuria
CPT/HCPCS: 36415; 80053; 80061; 81003; 82306; 82607; 83036; 84153; 84154; 84403; 84439; 84443; 85025

== ENCOUNTER 2020-11-17 10:32 | Emergency (ER) | payer MEDICARE, BC ==
[~2020-11-17] VITALS: Ht 157.5 cm; Wt 85.7 kg
[~2020-11-17 10:32] MED LIST changes: +AMLO-489 PO; -AMLO5TAB15 PO
[2020-11-17] MEDS ORDERED: ASPirin 81 mg TAB PO ONE (10:45)
[2020-11-17 11:33] LABS: Basophils # (auto) 0 10 ^3/uL (0-0.2); Basophils % (auto) 0.8 % (0.0-2.0); Eosinophils # (auto) 0.1 10 ^3/uL (0-0.8); Hematocrit 41.3 % (41.0-53.0); Hemoglobin 13.8 g/dL (13.5-17.5); Lymphocytes # (auto) 1.2 10 ^3/uL (0.4-5.4); Lymphocytes % (auto) 24.3 % (10.0-50.0); Mean Corpuscular Hemoglobin 33.6 pg (28.0-32.0); Mean Corpuscular Hgb Conc. 33.5 g/dL (32.0-36.0); Mean Corpuscular Volume 100.5 fL (80.0-100.0); Monocytes # (auto) 0.4 10 ^3/uL (0-1.3); Monocytes % (auto) 9.4 % (0.0-12.0); Neutrophils # (auto) 3.1 10 ^3/uL (1.6-8.6); Neutrophils % (auto) 63.5 % (37.0-80.0); Nucleated Red Blood Cells % 0.2 %; Platelet Count (auto) 203 10^3/uL (140-450); Red Blood Cells 4.11 10^6/uL (4.5-5.90); Red Cell Distribution Width 13.1 % (11.8-14.3); White Blood Cell 4.8 10^3/uL (4.4-10.8)
[2020-11-17 12:04] LABS: Blood Urea Nitrogen 12 mg/dL (7-18); Calcium 8.8 mg/dL (8.5-10.1); Chloride 105 mmol/L (98-107); Sodium 137 mmol/L (136-145)
[2020-11-17 12:12] VITALS: BP 138/60
[2020-11-17 12:12] LABS: Alanine Aminotransferase 20 U/L (16-61); Albumin 3.7 g/dL (3.4-5.0); Alkaline Phosphatase 72 U/L (45-117); Anion Gap 10 (5-15); Aspartate Aminotransferase 16 U/L (15-37); Bilirubin, Total 0.4 mg/dL (0.2-1.0); Carbon Dioxide 22 mmol/L (21-32); GFR African American 92 mL/min; GFR Non-African American 76 mL/min; Glucose 94 mg/dL (74-106); Magnesium 2.3 mg/dL (1.6-2.6); Total Protein 7.2 g/dL (6.4-8.2)
[2020-11-17] MEDS ORDERED: SODIUM CHLORIDE 0.9% 1,000 ML IV SCH (12:45)
[2020-11-17] MEDS ORDERED: IOHEXOL 350 MG/ML 100ML IJ ONE (12:51)
== END 2020-11-17 14:33 | disposition home or self-care (01) ==
LOC: ER 10:32
DX: R07.89 Other chest pain (principal); R79.89 Other specified abnormal findings of blood chemistry; I10 Essential (primary) hypertension; Z88.6 Allergy status to analgesic agent
CPT/HCPCS: 36415; 71045; 71275; 80053; 83735; 83880; 84484; 85025; 85379; 96360; 96361; 99285; Q9967

== ENCOUNTER 2021-02-05 07:36 | Day surgery (SDC) | payer MEDICARE, BC ==
[~2021-02-05] VITALS: Ht 167.6 cm; Wt 77.6 kg
[~2021-02-05 07:36] MED LIST changes: +CLOB0.055 TOP
[2021-02-05] MEDS ORDERED: ANGIOMAX 250 MG VIAL IV ONE (09:26)
[2021-02-05] MEDS ORDERED: GLYCOPYRROLATE 0.2 MG/ML 1ML VIAL ONE ×2 (09:27→10:47)
[2021-02-05] MEDS ORDERED: LIDOCAINE 2%HCL (LOCAL ANESTH.) INJ 20ML MDV ONE (09:27)
[2021-02-05] MEDS ORDERED: SODIUM CHL 0.9% 50 ML ONE (09:27)
[2021-02-05] MEDS ORDERED: PHENYLEPHRINE HCL 10 MG/ML VL ONE (09:28)
[2021-02-05] MEDS ORDERED: ONDANSETRON HCL 4 MG/2 ML VIAL IV PRN (11:45)
[2021-02-05] MEDS ORDERED: HYDROcodone-ACET 5/325MG TAB PO PRN (11:45)
[2021-02-05] MEDS ORDERED: ACETAMINOPHEN 500 MG TAB PO PRN (11:45)
== END 2021-02-05 13:48 | disposition home or self-care (01) ==
LOC: CATH 07:36
PROVIDERS: ATTEND Internal Medicine Cardiovascular Disease
DX: I65.22 Occlusion and stenosis of left carotid artery (principal); I10 Essential (primary) hypertension; E78.5 Hyperlipidemia, unspecified; Z87.891 Personal history of nicotine dependence; Z20.822 Contact with and (suspected) exposure to COVID-19; Z98.890 Other specified postprocedural states; Z79.899 Other long term (current) drug therapy; Z79.82 Long term (current) use of aspirin
CPT/HCPCS: 37246; C1725; C1760; C1769; C1876; C1887; C1894; J0583; J1644; J7030; U0003; 99152; 99153

== ENCOUNTER → 2021-05-12 | Outpatient (CLI) | payer MEDICARE, BC ==
[~2021-05-12] VITALS: Ht 167.6 cm; Wt 77.1 kg
[~2021-05-12] MED LIST changes: +ADENOSINE 65 MG in GIVE UN-DILUTED 0 ML IV ONE; +ADENOSINE 90 MG/30 ML INJ IV ONE
== END | disposition home or self-care (01) ==
LOC: Rad HDHVI 08:19
PROVIDERS: ATTEND Internal Medicine
DX: I25.10 Atherosclerotic heart disease of native coronary artery without angina pectoris (principal); I10 Essential (primary) hypertension; E78.5 Hyperlipidemia, unspecified; Z82.49 Family history of ischemic heart disease and other diseases of the circulatory system
CPT/HCPCS: 78452; 93005; 96374; 96375; A9500; J0153

== ENCOUNTER 2021-06-23 12:52 | Inpatient (IN) | payer MEDICARE, BC ==
[~2021-06-23] VITALS: Ht 167.6 cm; Wt 80.6 kg
[2021-06-23] MEDS ORDERED: MORPHINE SULFATE INJECTION 2 MG/ML SYRG IV PRN (14:00)
[2021-06-23] MEDS ORDERED: NITROGLYCERIN 0.4 MG SL TAB SL PRN (14:00)
[2021-06-23] MEDS: ALPRAZolam 0.25 MG TAB PO SCH ×2 (14:00→22:00)
[2021-06-23] MEDS ORDERED: traMADol HCL 50 MG TAB PO PRN (14:00)
[2021-06-23 15:23] LABS: Eosinophils # (auto) 0.1 10 ^3/uL (0-0.8); Hemoglobin 12.3 g/dL (13.5-17.5); Neutrophils # (auto) 3.5 10 ^3/uL (1.6-8.6); White Blood Cell 5.8 10^3/uL (4.4-10.8)
[2021-06-23 15:24] LABS: Basophils # (auto) 0.1 10 ^3/uL (0-0.2); Basophils % (auto) 1.2 % (0.0-2.0); Eosinophils % (auto) 1.6 % (0.0-7.0); Hematocrit 37.1 % (41.0-53.0); Lymphocytes # (auto) 1.4 10 ^3/uL (0.4-5.4); Lymphocytes % (auto) 24.3 % (10.0-50.0); Mean Corpuscular Hemoglobin 33.9 pg (28.0-32.0); Mean Corpuscular Hgb Conc. 33.2 g/dL (32.0-36.0); Monocytes # (auto) 0.7 10 ^3/uL (0-1.3); Monocytes % (auto) 12.3 % (0.0-12.0); Neutrophils % (auto) 60.6 % (37.0-80.0); Nucleated Red Blood Cells % 0.1 %; Red Blood Cells 3.64 10^6/uL (4.5-5.90); Red Cell Distribution Width 13.1 % (11.8-14.3)
[2021-06-23] MEDS: SOD CHL 0.45% 1,000 ML IV SCH (15:27)
[2021-06-23 15:41] LABS: Albumin 3.4 g/dL (3.4-5.0); BUN/Creatinine Ratio 17.1; Calcium 8.6 mg/dL (8.5-10.1); Potassium 4.5 mmol/L (3.5-5.1)
[2021-06-23 15:45] LABS: Bilirubin, Total 0.6 mg/dL (0.2-1.0); Total Protein 6.9 g/dL (6.4-8.2)
[2021-06-23 16:30] VITALS: BP 127/61
[2021-06-23] MEDS ORDERED: LORazepam 0.5 MG TAB PO ONE (17:00)
[2021-06-23 17:02] LABS: INR 1.03 (0.9-1.15)
[2021-06-23 17:36] VITALS: BP 134/61
[2021-06-23 22:00] VITALS: BP 136/78
[2021-06-23] MEDS: ATORVASTATIN 20 MG TAB PO SCH (22:30)
[2021-06-24] MEDS: SOD CHL 0.45% 1,000 ML IV SCH ×2 (03:33→16:40)
[2021-06-24 05:00] VITALS: BP 153/77
[2021-06-24] MEDS: ALPRAZolam 0.25 MG TAB PO SCH ×2 (05:01→14:00)
[2021-06-24 06:06] LABS: Urine Bacteria NONE SEEN /hpf (None Seen); Urine Blood Negative /uL (Negative); Urine Specific Gravity 1.007 (1.001-1.035); Urine WBC <1 /hpf (0 - 3)
[2021-06-24 09:00] VITALS: BP 130/52
[2021-06-24] MEDS ORDERED: VANCOMYCIN 1GM/250ML 250 ML IV ONE ×2 (09:00→15:52)
[2021-06-24] MEDS ORDERED: VANCOMYCIN HCL 1000 MG VL IR ONE (09:00)
[2021-06-24] MEDS: amLODIPine BESYLATE 5 MG TAB PO SCH (09:21)
[2021-06-24] MEDS: CLOPIDOGREL BISULFATE 75 MG TAB PO SCH (09:22)
[2021-06-24] MEDS: ASPirin 81 mg TAB PO SCH (09:22)
[2021-06-24 13:00] VITALS: BP 133/69
[2021-06-24] MEDS ORDERED: MIDAZOLAM HCL 2MG/2ML 2ml VIAL (1mg/ml) ONE (15:41)
[2021-06-24] MEDS ORDERED: fentaNYL CITRATE 100 MCG/2 ML VL ONE (15:41)
[2021-06-24] MEDS ORDERED: LIDOCAINE 2%HCL (LOCAL ANESTH.) INJ 20ML MDV ONE (15:42)
[2021-06-24] MEDS ORDERED: VANCOMYCIN HCL 1000 MG VL ONE (15:51)
[2021-06-24] MEDS ORDERED: IOHEXOL 350 MG/ML 100ML IJ ONE (16:34)
[2021-06-24] MEDS ORDERED: SODIUM CHLORIDE 0.9% 1,000 ML IV ONE (17:15)
[2021-06-24] MEDS ORDERED: ACETAMINOPHEN 325 MG TAB PO PRN (17:15)
[2021-06-24] MEDS ORDERED: TAMSULOSIN HYDROCHLORIDE 0.4 MG CAP PO SCH (18:00)
[2021-06-24 22:00] VITALS: BP 145/54
[2021-06-24] MEDS ORDERED: ALPRAZolam 0.25 MG TAB PO PRN (22:00)
[2021-06-24] MEDS: ATORVASTATIN 20 MG TAB PO SCH (22:14)
[2021-06-25 05:00] VITALS: BP 149/77
[2021-06-25] MEDS: SOD CHL 0.45% 1,000 ML IV SCH (05:59)
[2021-06-25 09:24] LABS: Basophils # (auto) 0 10 ^3/uL (0-0.2); Basophils % (auto) 0.2 % (0.0-2.0); Eosinophils # (auto) 0 10 ^3/uL (0-0.8); Eosinophils % (auto) 0.2 % (0.0-7.0); Hematocrit 38.8 % (41.0-53.0); Lymphocytes # (auto) 1.2 10 ^3/uL (0.4-5.4); Lymphocytes % (auto) 16.3 % (10.0-50.0); Mean Corpuscular Hemoglobin 34.2 pg (28.0-32.0); Mean Corpuscular Hgb Conc. 33.5 g/dL (32.0-36.0); Mean Corpuscular Volume 102.1 fL (80.0-100.0); Monocytes # (auto) 0.9 10 ^3/uL (0-1.3); Monocytes % (auto) 12.8 % (0.0-12.0); Neutrophils # (auto) 5.2 10 ^3/uL (1.6-8.6); Neutrophils % (auto) 70.5 % (37.0-80.0); Nucleated Red Blood Cells % 0.1 %; Red Cell Distribution Width 13.1 % (11.8-14.3); White Blood Cell 7.4 10^3/uL (4.4-10.8)
[2021-06-25 09:27] VITALS: BP 130/70
[2021-06-25 09:37] LABS: Calcium 8.7 mg/dL (8.5-10.1); Potassium 4.2 mmol/L (3.5-5.1)
[2021-06-25 09:39] LABS: BUN/Creatinine Ratio 19.5
[2021-06-25] MEDS: ASPirin 81 mg TAB PO SCH (09:41)
[2021-06-25] MEDS: CLOPIDOGREL BISULFATE 75 MG TAB PO SCH (09:41)
[2021-06-25] MEDS: amLODIPine BESYLATE 5 MG TAB PO SCH (09:41)
[2021-06-25 10:50] VITALS: BP 130/70
== END 2021-06-25 13:00 | disposition home or self-care (01) | DRG 242 ==
LOC: TELE-CENTR 13:15
PROVIDERS: ADMIT Internal Medicine; ATTEND Internal Medicine
PROC: 02H63JZ Insertion of Pacemaker Lead into Right Atrium, Percutaneous Approach (ICD-10-PCS; principal; 2021-06-24)
PROC: 02HK3JZ Insertion of Pacemaker Lead into Right Ventricle, Percutaneous Approach (ICD-10-PCS; 2021-06-24)
PROC: 0JH606Z Insertion of Pacemaker, Dual Chamber into Chest Subcutaneous Tissue and Fascia, Open Approach (ICD-10-PCS; 2021-06-24)
DX: I44.1 Atrioventricular block, second degree (principal); N17.0 Acute kidney failure with tubular necrosis; I10 Essential (primary) hypertension; N40.0 Benign prostatic hyperplasia without lower urinary tract symptoms; I73.9 Peripheral vascular disease, unspecified; E78.5 Hyperlipidemia, unspecified; Z20.822 Contact with and (suspected) exposure to COVID-19; R00.1 Bradycardia, unspecified
CPT/HCPCS: 33217; 36415; 71045; 73630; 80048; 80053; 81001; 85025; 85610; 85730; 86850; 86900; 86901; 87426; 93005; 99152; A4565; C1785; G0378; J2250

== ENCOUNTER → 2021-06-23 | Outpatient (CLI) | payer MEDICARE, BC ==
[~2021-06-23] MED LIST changes: -ADENOSINE 65 MG in GIVE UN-DILUTED 0 ML IV ONE; -ADENOSINE 90 MG/30 ML INJ IV ONE
== END | disposition home or self-care (01) ==
LOC: Rad HDHVI 12:39
PROVIDERS: ATTEND Internal Medicine
DX: M79.671 Pain in right foot (principal)
CPT/HCPCS: 73630

== ENCOUNTER → 2021-07-24 | Outpatient (CLI) | payer MEDICARE, BC | END | disposition home or self-care (01) | LOC: Rad HDHVI 14:50 | PROVIDERS: ATTEND Internal Medicine Cardiovascular Disease | DX: J98.11 Atelectasis (principal); Q25.46 Tortuous aortic arch; I70.0 Atherosclerosis of aorta; M47.9 Spondylosis, unspecified | CPT/HCPCS: 71046 ==

== ENCOUNTER → 2022-02-10 | Outpatient (CLI) | payer MEDICARE, BC ==
[2022-02-10 11:24] LABS: Urine Blood Negative /uL (Negative); Urine Specific Gravity 1.012 (1.001-1.035)
[2022-02-10 11:31] LABS: Basophils # (auto) 0 10 ^3/uL (0-0.2); Basophils % (auto) 0.7 % (0.0-2.0); Eosinophils # (auto) 0.1 10 ^3/uL (0-0.8); Hematocrit 37.6 % (41.0-53.0); Hemoglobin 12.4 g/dL (13.5-17.5); Lymphocytes # (auto) 1.1 10 ^3/uL (0.4-5.4); Lymphocytes % (auto) 26.9 % (10.0-50.0); Mean Corpuscular Hemoglobin 33.1 pg (28.0-32.0); Mean Corpuscular Volume 100.2 fL (80.0-100.0); Monocytes # (auto) 0.5 10 ^3/uL (0-1.3); Monocytes % (auto) 11.6 % (0.0-12.0); Neutrophils # (auto) 2.3 10 ^3/uL (1.6-8.6); Neutrophils % (auto) 58.8 % (37.0-80.0); Red Blood Cells 3.75 10^6/uL (4.5-5.90); Red Cell Distribution Width 14.1 % (11.8-14.3)
[2022-02-10 11:39] LABS: Albumin 3.4 g/dL (3.4-5.0); Calcium 8.7 mg/dL (8.5-10.1)
[2022-02-10 11:44] LABS: BUN/Creatinine Ratio 12.4; Bilirubin, Total 0.6 mg/dL (0.2-1.0); Total Protein 6.9 g/dL (6.4-8.2)
[2022-02-10 11:46] LABS: Free T4 (Free Thyroxine) 1.38 ng/dL (0.89-1.76)
[2022-02-10 11:56] LABS: Prostate Specific Antigen 4.41 ng/mL (0.0-4.0)
== END | disposition home or self-care (01) ==
LOC: LAB 08:29
PROVIDERS: ATTEND Internal Medicine
DX: D51.3 Other dietary vitamin B12 deficiency anemia (principal); D64.9 Anemia, unspecified; E11.9 Type 2 diabetes mellitus without complications; E55.9 Vitamin D deficiency, unspecified; I10 Essential (primary) hypertension; R00.2 Palpitations; R53.1 Weakness; R30.0 Dysuria; C61 Malignant neoplasm of prostate
CPT/HCPCS: 36415; 80053; 80061; 81003; 82306; 82607; 83036; 84153; 84154; 84403; 84439; 84443; 85025

== ENCOUNTER → 2022-09-13 | Outpatient (CLI) | payer MEDICARE, BC ==
[2022-09-13 12:16] LABS: Basophils # (auto) 0 10 ^3/uL (0-0.2); Basophils % (auto) 0.5 % (0.0-2.0); Eosinophils # (auto) 0.1 10 ^3/uL (0-0.8); Eosinophils % (auto) 1.7 % (0.0-7.0); Hematocrit 37.4 % (41.0-53.0); Hemoglobin 12.7 g/dL (13.5-17.5); Lymphocytes # (auto) 1.1 10 ^3/uL (0.4-5.4); Lymphocytes % (auto) 21.2 % (10.0-50.0); Mean Corpuscular Hemoglobin 33.8 pg (28.0-32.0); Mean Corpuscular Volume 99.5 fL (80.0-100.0); Monocytes # (auto) 0.6 10 ^3/uL (0-1.3); Monocytes % (auto) 10.8 % (0.0-12.0); Neutrophils # (auto) 3.4 10 ^3/uL (1.6-8.6); Neutrophils % (auto) 65.8 % (37.0-80.0); Red Blood Cells 3.76 10^6/uL (4.5-5.90); Red Cell Distribution Width 13.1 % (11.8-14.3); White Blood Cell 5.2 10^3/uL (4.4-10.8)
[2022-09-13 12:38] LABS: Albumin 3.9 g/dL (3.4-5.0); Potassium 4.4 mmol/L (3.5-5.1)
[2022-09-13 12:44] LABS: Urine Blood TRACE /uL (Negative); Urine Specific Gravity 1.018 (1.001-1.035)
[2022-09-13 13:00] LABS: BUN/Creatinine Ratio 15.3; Bilirubin, Total 0.7 mg/dL (0.2-1.0); Calcium 8.8 mg/dL (8.5-10.1); Total Protein 6.7 g/dL (6.4-8.2)
[2022-09-13 14:19] LABS: Free T4 (Free Thyroxine) 1.3 ng/dL (0.89-1.76)
[2022-09-13 14:21] LABS: Prostate Specific Antigen 5.15 ng/mL (0.0-4.0)
== END | disposition home or self-care (01) ==
LOC: LAB 08:42
PROVIDERS: ATTEND Internal Medicine
DX: E78.5 Hyperlipidemia, unspecified (principal); E55.9 Vitamin D deficiency, unspecified; N39.0 Urinary tract infection, site not specified
CPT/HCPCS: 36415; 80053; 80061; 81003; 82306; 82607; 83036; 84153; 84154; 84403; 84439; 84443; 85025; 87086

== ENCOUNTER → 2023-04-14 | Outpatient (CLI) | payer MEDICARE, BC ==
[~2023-04-14] MED LIST changes: -AMLO-489 PO; +AMLO1TAB22 PO; -SIMV-8 PO; +SIMV20TA20 PO
== END | disposition home or self-care (01) ==
LOC: Rad HDHVI 10:35
PROVIDERS: ATTEND Internal Medicine Cardiovascular Disease
DX: I08.3 Combined rheumatic disorders of mitral, aortic and tricuspid valves (principal); R06.02 Shortness of breath; R00.2 Palpitations
CPT/HCPCS: 93306

== ENCOUNTER → 2023-04-20 | Outpatient (CLI) | payer MEDICARE, BC ==
[~2023-04-20] VITALS: Ht 165.1 cm; Wt 76.7 kg
[~2023-04-20] MED LIST changes: +ADENOSINE 64 MG in GIVE UN-DILUTED 0 ML IV ONE; +ADENOSINE 90 MG/30 ML INJ IV ONE
== END | disposition home or self-care (01) ==
LOC: Rad HDHVI 13:12
PROVIDERS: ATTEND Internal Medicine Cardiovascular Disease
DX: I11.0 Hypertensive heart disease with heart failure (principal); I50.43 Acute on chronic combined systolic (congestive) and diastolic (congestive) heart failure; E78.00 Pure hypercholesterolemia, unspecified; R06.02 Shortness of breath; Z82.49 Family history of ischemic heart disease and other diseases of the circulatory system; Z95.0 Presence of cardiac pacemaker
CPT/HCPCS: 78452; 93005; 96374; 96375; A9500; J0153

== ENCOUNTER 2023-07-04 23:16 | Emergency (ER) | payer MEDICARE, BC ==
[~2023-07-04] VITALS: Ht 152.4 cm; Wt 77.4 kg
[~2023-07-04 23:16] MED LIST changes: -ADENOSINE 64 MG in GIVE UN-DILUTED 0 ML IV ONE; -ADENOSINE 90 MG/30 ML INJ IV ONE
[2023-07-05 00:05] LABS: Basophils # (auto) 0 10 ^3/uL (0-0.2); Eosinophils # (auto) 0.2 10 ^3/uL (0-0.8); Lymphocytes # (auto) 1.3 10 ^3/uL (0.4-5.4)
[2023-07-05 00:05] LABS: Urine Bacteria NONE SEEN /hpf (None Seen); Urine Blood 3+ /uL (Negative); Urine Clarity HAZY (Clear); Urine Color Yellow (Yellow); Urine Mucus FEW (None Seen); Urine Protein, UAD TRACE (Negative); Urine Specific Gravity 1.017 (1.001-1.035); Urine Urobilinogen Normal (Negative); Urine WBC 4 /hpf (0 - 3); Urine pH 5.5 (5.0-8.0)
[2023-07-05 00:06] LABS: Basophils % (auto) 0.3 % (0.0-2.0); Eosinophils % (auto) 2.2 % (0.0-7.0); Hematocrit 36.7 % (41.0-53.0); Hemoglobin 12.5 g/dL (13.5-17.5); Lymphocytes % (auto) 16.2 % (10.0-50.0); Mean Corpuscular Hemoglobin 34.7 pg (28.0-32.0); Mean Corpuscular Hgb Conc. 34.1 g/dL (32.0-36.0); Mean Corpuscular Volume 101.8 fL (80.0-100.0); Monocytes % (auto) 11.8 % (0.0-12.0); Neutrophils # (auto) 5.6 10 ^3/uL (1.6-8.6); Neutrophils % (auto) 69.5 % (37.0-80.0); Nucleated Red Blood Cells % 0.1 %; Red Cell Distribution Width 12.9 % (11.8-14.3)
[2023-07-05 00:12] LABS: Alanine Aminotransferase 15 U/L (7-40); Alkaline Phosphatase 57 U/L (46-116); Anion Gap 9 (5-15); Aspartate Aminotransferase 23 U/L (13-40); BUN/Creatinine Ratio 14.6 (10.0-20.0); Blood Urea Nitrogen 29 mg/dL (9-23); Calcium 9.3 mg/dL (8.5-10.1); Carbon Dioxide 22 mmol/L (20-30); Chloride 100 mmol/L (98-107); Glucose 107 mg/dL (74-106); Potassium 3.9 mmol/L (3.5-5.1); Sodium 131 mmol/L (136-145)
[2023-07-05 00:13] LABS: Albumin 4.3 g/dL (3.2-4.8); Bilirubin, Total 0.8 mg/dL (0.2-1.0); Total Protein 7.1 g/dL (5.7-8.2)
[2023-07-05 00:29] LABS: Lipase 41 U/L (12-53)
[2023-07-05 03:47] VITALS: BP 131/74; PULSE 78; RESP 16; TEMP 97.4; O2SAT 95
== END 2023-07-05 03:47 | disposition home or self-care (01) ==
LOC: ER 23:16
DX: R33.9 Retention of urine, unspecified (principal); I10 Essential (primary) hypertension; E78.5 Hyperlipidemia, unspecified; Z98.890 Other specified postprocedural states; Z79.899 Other long term (current) drug therapy; Z79.84 Long term (current) use of oral hypoglycemic drugs
CPT/HCPCS: 36415; 51702; 74176; 80053; 81001; 83690; 85025; 93005

== ENCOUNTER 2023-07-15 00:20 | Inpatient (IN) | payer MEDICARE, BC ==
[~2023-07-15] VITALS: Ht 172.7 cm; Wt 76.8 kg
[2023-07-15 01:18] LABS: Basophils # (auto) 0 10 ^3/uL (0-0.2); Basophils % (auto) 0.4 % (0.0-2.0); Eosinophils # (auto) 0 10 ^3/uL (0-0.8); Eosinophils % (auto) 0.6 % (0.0-7.0); Hematocrit 33.3 % (41.0-53.0); Hemoglobin 11.5 g/dL (13.5-17.5); Lymphocytes % (auto) 12.9 % (10.0-50.0); Mean Corpuscular Hemoglobin 34.7 pg (28.0-32.0); Mean Corpuscular Hgb Conc. 34.5 g/dL (32.0-36.0); Mean Corpuscular Volume 100.6 fL (80.0-100.0); Monocytes % (auto) 13.1 % (0.0-12.0); Neutrophils # (auto) 5.8 10 ^3/uL (1.6-8.6); Red Blood Cells 3.31 10^6/uL (4.5-5.90); Red Cell Distribution Width 12.9 % (11.8-14.3); White Blood Cell 7.9 10^3/uL (4.4-10.8)
[2023-07-15 01:31] LABS: Alanine Aminotransferase 26 U/L (7-40); Albumin 3.8 g/dL (3.2-4.8); Alkaline Phosphatase 68 U/L (46-116); Anion Gap 8 (5-15); Aspartate Aminotransferase 33 U/L (13-40); BUN/Creatinine Ratio 18.6 (10.0-20.0); Bilirubin, Total 0.6 mg/dL (0.2-1.0); Blood Urea Nitrogen 21 mg/dL (9-23); Calcium 8.5 mg/dL (8.7-10.4); Carbon Dioxide 25 mmol/L (20-30); Chloride 102 mmol/L (98-107); Glucose 104 mg/dL (74-106); Magnesium 1.4 mg/dL (1.6-2.6); Sodium 135 mmol/L (136-145)
[2023-07-15 01:32] LABS: Total Protein 6.6 g/dL (5.7-8.2)
[2023-07-15 01:34] LABS: INR 1.12 (0.9-1.15); Partial Thromboplastin Time 32.7 SEC (24.5-34.5); Prothrombin Time 11.7 sec (9.3-11.8)
[2023-07-15 01:50] VITALS: PULSE 80; RESP 17; O2SAT 94
[2023-07-15] MEDS ORDERED: KETOROLAC TROMETH 30 MG/ML 1ML VIAL IV ONE (04:00)
[2023-07-15] MEDS ORDERED: HYDROcodone-ACET 10/325MG TAB PO ONE (04:00)
[2023-07-15 04:18] LABS: Urine Bacteria NONE SEEN /hpf (None Seen); Urine Blood 3+ /uL (Negative); Urine Clarity HAZY (Clear); Urine Color Yellow (Yellow); Urine Mucus FEW (None Seen); Urine Protein, UAD 1+ (Negative); Urine Specific Gravity 1.022 (1.001-1.035); Urine WBC 9 /hpf (0 - 3)
[2023-07-15 04:32] LABS: Uric Acid 7.2 mg/dL (3.7-9.2)
[2023-07-15 04:52] LABS: CRP High Sensitivity 13.93 mg/dL (<1.0)
[2023-07-15 04:53] LABS: Erythrocyte Sedimentation Rate 88 mm/hr (0-20)
[2023-07-15] MEDS ORDERED: VANCOMYCIN PER PHARMACY 0 MG IV SCH (05:45)
[2023-07-15] MEDS ORDERED: NITROGLYCERIN 0.4 MG SL TAB SL PRN (07:00)
[2023-07-15] MEDS ORDERED: MORPHINE SULFATE INJ 2 MG/ml SYRG IV PRN (07:00)
[2023-07-15] MEDS ORDERED: VANCOMYCIN 1GM/250ML 250 ML IV ONE (07:00)
[2023-07-15] MEDS ORDERED: ONDANSETRON HCL 4 MG/2 ML VIAL IV PRN (07:00)
[2023-07-15 08:00] VITALS: PULSE 79; RESP 19; O2SAT 93
[2023-07-15 08:00] LABS: Basophils # (auto) 0 10 ^3/uL (0-0.2); Basophils % (auto) 0.5 % (0.0-2.0); Eosinophils # (auto) 0.1 10 ^3/uL (0-0.8); Eosinophils % (auto) 1.3 % (0.0-7.0); Hematocrit 32.5 % (41.0-53.0); Hemoglobin 10.9 g/dL (13.5-17.5); Lymphocytes % (auto) 16.2 % (10.0-50.0); Mean Corpuscular Hemoglobin 33.7 pg (28.0-32.0); Mean Corpuscular Hgb Conc. 33.6 g/dL (32.0-36.0); Mean Corpuscular Volume 100.2 fL (80.0-100.0); Monocytes # (auto) 0.9 10 ^3/uL (0-1.3); Monocytes % (auto) 14.3 % (0.0-12.0); Neutrophils # (auto) 4.2 10 ^3/uL (1.6-8.6); Neutrophils % (auto) 67.7 % (37.0-80.0); Red Blood Cells 3.25 10^6/uL (4.5-5.90); Red Cell Distribution Width 12.4 % (11.8-14.3); White Blood Cell 6.2 10^3/uL (4.4-10.8)
[2023-07-15 08:30] LABS: Alanine Aminotransferase 26 U/L (7-40); Albumin 3.6 g/dL (3.2-4.8); Alkaline Phosphatase 64 U/L (46-116); Anion Gap 12 (5-15); Aspartate Aminotransferase 30 U/L (13-40); BUN/Creatinine Ratio 18.6 (10.0-20.0); Bilirubin, Total 0.6 mg/dL (0.2-1.0); Blood Urea Nitrogen 18 mg/dL (9-23); Calcium 8.8 mg/dL (8.5-10.1); Carbon Dioxide 22 mmol/L (20-30); Chloride 102 mmol/L (98-107); Glucose 100 mg/dL (74-106); Potassium 3.6 mmol/L (3.5-5.1); Sodium 136 mmol/L (136-145); Total Protein 6.2 g/dL (5.7-8.2)
[2023-07-15] MEDS ORDERED: MAGNESIUM SULFATE 1GM/100ML 100 ML IV ONE (09:00)
[2023-07-15] MEDS: cefTRIAXone 1GM/50ML D5W 50 ML IV SCH (09:04)
[2023-07-15] MEDS: ASPirin 81 mg TAB PO SCH (10:31)
[2023-07-15] MEDS: amLODIPine BESYLATE 5 MG TAB PO SCH (10:31)
[2023-07-15 19:50] VITALS: PULSE 98; PULSE 99; RESP 17; O2SAT 94
[2023-07-15 19:58] VITALS: BP 159/69; PULSE 99; RESP 17; TEMP 98.6; O2SAT 94
[2023-07-15] MEDS: HYDROcodone-ACET 5/325MG TAB PO PRN (21:50)
[2023-07-15] MEDS: ATORVASTATIN 20 MG TAB PO SCH (21:51)
[2023-07-15] MEDS: VANCOMYCIN 1GM/250ML 250 ML IV SCH (22:33)
[2023-07-15 22:39] VITALS: BP 159/69; PULSE 99; RESP 17; TEMP 98.6; O2SAT 94
[2023-07-16] VITALS (7 sets, daily range): BP systolic 131–150; BP diastolic 52–69; PULSE 77–86; RESP 16–19; TEMP 97.6–98.8; O2SAT 92–95
[2023-07-16 05:39] LABS: Basophils # (auto) 0 10 ^3/uL (0-0.2); Basophils % (auto) 0.4 % (0.0-2.0); Eosinophils # (auto) 0 10 ^3/uL (0-0.8); Eosinophils % (auto) 0.5 % (0.0-7.0); Hematocrit 30.8 % (41.0-53.0); Hemoglobin 10.5 g/dL (13.5-17.5); Lymphocytes # (auto) 0.8 10 ^3/uL (0.4-5.4); Lymphocytes % (auto) 11.1 % (10.0-50.0); Mean Corpuscular Hemoglobin 33.9 pg (28.0-32.0); Mean Corpuscular Hgb Conc. 34.1 g/dL (32.0-36.0); Mean Corpuscular Volume 99.6 fL (80.0-100.0); Monocytes # (auto) 1.1 10 ^3/uL (0-1.3); Monocytes % (auto) 15.5 % (0.0-12.0); Neutrophils # (auto) 5.1 10 ^3/uL (1.6-8.6); Neutrophils % (auto) 72.5 % (37.0-80.0); Red Cell Distribution Width 12.6 % (11.8-14.3)
[2023-07-16] MEDS: HYDROcodone-ACET 5/325MG TAB PO PRN (05:57)
[2023-07-16 06:07] LABS: Alanine Aminotransferase 28 U/L (7-40); Albumin 3.4 g/dL (3.2-4.8); Alkaline Phosphatase 62 U/L (46-116); Anion Gap 9 (5-15); Aspartate Aminotransferase 34 U/L (13-40); BUN/Creatinine Ratio 15.9 (10.0-20.0); Blood Urea Nitrogen 14 mg/dL (9-23); Calcium 8.5 mg/dL (8.5-10.1); Carbon Dioxide 24 mmol/L (20-30); Chloride 101 mmol/L (98-107); Glucose 104 mg/dL (74-106); Potassium 3.4 mmol/L (3.5-5.1); Sodium 134 mmol/L (136-145)
[2023-07-16 06:08] LABS: Total Protein 5.8 g/dL (5.7-8.2)
[2023-07-16 06:18] LABS: Bilirubin, Total 0.7 mg/dL (0.2-1.0)
[2023-07-16] MEDS: cefTRIAXone 1GM/50ML D5W 50 ML IV SCH (09:11)
[2023-07-16] MEDS: ASPirin 81 mg TAB PO SCH (09:13)
[2023-07-16] MEDS: amLODIPine BESYLATE 5 MG TAB PO SCH (09:14)
[2023-07-16] MEDS: VANCOMYCIN 1GM/250ML 250 ML IV SCH (14:19)
[2023-07-16] MEDS: DOCUSATE SOD 100 MG CAP PO PRN (21:21)
[2023-07-16] MEDS: ATORVASTATIN 20 MG TAB PO SCH (21:21)
[2023-07-16] MEDS: ACETAMINOPHEN 325 MG TAB PO PRN (21:22)
[2023-07-17 05:00] VITALS: BP 142/52; PULSE 87; RESP 15; TEMP 98.3; O2SAT 95
[2023-07-17] MEDS: VANCOMYCIN 1GM/250ML 250 ML IV SCH ×2 (06:26→20:51)
[2023-07-17 08:00] VITALS: BP 157/53; PULSE 87; PULSE 89; RESP 19; RESP 20; TEMP 98.6; O2SAT 94
[2023-07-17] MEDS: ASPirin 81 mg TAB PO SCH (08:44)
[2023-07-17] MEDS: ACETAMINOPHEN 325 MG TAB PO PRN (08:45)
[2023-07-17] MEDS: DOCUSATE SOD 100 MG CAP PO PRN (08:45)
[2023-07-17] MEDS: cefTRIAXone 1GM/50ML D5W 50 ML IV SCH (08:46)
[2023-07-17] MEDS: amLODIPine BESYLATE 5 MG TAB PO SCH (08:57)
[2023-07-17 12:00] VITALS: BP 116/54; PULSE 73; RESP 20; TEMP 97.6; O2SAT 94
[2023-07-17 16:00] VITALS: BP 125/57; PULSE 71; RESP 20; TEMP 97.8; O2SAT 95
[2023-07-17 20:00] VITALS: PULSE 80; PULSE 85; RESP 19
[2023-07-17] MEDS: ATORVASTATIN 20 MG TAB PO SCH (20:51)
[2023-07-17 22:00] VITALS: BP 136/56; PULSE 70; RESP 16; TEMP 98.3; O2SAT 96
[2023-07-18 05:00] VITALS: BP 130/64; PULSE 74; RESP 16; TEMP 97.4; O2SAT 92
[2023-07-18 08:00] VITALS: BP 137/65; PULSE 70; PULSE 75; RESP 20; TEMP 98.6; O2SAT 95
[2023-07-18] MEDS: ASPirin 81 mg TAB PO SCH (08:56)
[2023-07-18] MEDS: amLODIPine BESYLATE 5 MG TAB PO SCH (08:56)
[2023-07-18] MEDS: cefTRIAXone 1GM/50ML D5W 50 ML IV SCH (08:56)
[2023-07-18] MEDS: VANCOMYCIN 1GM/250ML 250 ML IV SCH (09:37)
[2023-07-18 12:00] VITALS: BP 149/48; PULSE 63; RESP 20; TEMP 98.1; O2SAT 94
[2023-07-18 16:00] VITALS: BP 128/61; PULSE 68; RESP 20; TEMP 98; O2SAT 95
[2023-07-18 16:04] LABS: Basophils # (auto) 0 10 ^3/uL (0-0.2); Basophils % (auto) 0.4 % (0.0-2.0); Eosinophils # (auto) 0.1 10 ^3/uL (0-0.8); Hematocrit 30.3 % (41.0-53.0); Hemoglobin 10.4 g/dL (13.5-17.5); Lymphocytes % (auto) 12.2 % (10.0-50.0); Mean Corpuscular Hgb Conc. 34.3 g/dL (32.0-36.0); Mean Corpuscular Volume 98.9 fL (80.0-100.0); Monocytes # (auto) 0.8 10 ^3/uL (0-1.3); Monocytes % (auto) 9.6 % (0.0-12.0); Neutrophils # (auto) 6.3 10 ^3/uL (1.6-8.6); Neutrophils % (auto) 76.8 % (37.0-80.0); Red Blood Cells 3.07 10^6/uL (4.5-5.90); Red Cell Distribution Width 12.8 % (11.8-14.3); White Blood Cell 8.3 10^3/uL (4.4-10.8)
[2023-07-18 16:16] LABS: Alanine Aminotransferase 65 U/L (7-40); Albumin 3.3 g/dL (3.2-4.8); Alkaline Phosphatase 75 U/L (46-116); Anion Gap 6 (5-15); Aspartate Aminotransferase 73 U/L (13-40); BUN/Creatinine Ratio 16.7 (10.0-20.0); Bilirubin, Total 0.4 mg/dL (0.2-1.0); Blood Urea Nitrogen 14 mg/dL (9-23); Calcium 8.1 mg/dL (8.7-10.4); Carbon Dioxide 26 mmol/L (20-30); Chloride 99 mmol/L (98-107); Glucose 112 mg/dL (74-106); Potassium 3.5 mmol/L (3.5-5.1); Sodium 131 mmol/L (136-145); Total Protein 5.9 g/dL (5.7-8.2)
[2023-07-18 20:00] VITALS: PULSE 76; RESP 16; O2SAT 96
[2023-07-18 22:00] VITALS: BP 134/59; PULSE 76; RESP 16; TEMP 99; O2SAT 96
[2023-07-18] MEDS: ATORVASTATIN 20 MG TAB PO SCH (22:18)
[2023-07-18] MEDS: ACETAMINOPHEN 325 MG TAB PO PRN (22:31)
[2023-07-19] MEDS: VANCOMYCIN 1GM/250ML 250 ML IV SCH ×2 (00:05→13:49)
[2023-07-19 05:00] VITALS: BP 148/56; PULSE 67; RESP 16; TEMP 97.3; O2SAT 95
[2023-07-19] MEDS: DOCUSATE SOD 100 MG CAP PO PRN (06:04)
[2023-07-19 08:00] VITALS: PULSE 69
[2023-07-19] MEDS: ASPirin 81 mg TAB PO SCH (08:33)
[2023-07-19] MEDS: amLODIPine BESYLATE 5 MG TAB PO SCH (08:34)
[2023-07-19] MEDS: cefTRIAXone 1GM/50ML D5W 50 ML IV SCH (08:35)
[2023-07-19 08:50] VITALS: BP 135/60; PULSE 70; RESP 18; TEMP 98.5; O2SAT 95
[2023-07-19 13:00] VITALS: BP 146/59; PULSE 69; RESP 16; TEMP 98.2; O2SAT 95
[2023-07-19 17:00] VITALS: BP 147/61; PULSE 66; RESP 18; TEMP 97.7; O2SAT 93
== END 2023-07-19 19:25 | disposition home or self-care (01) | DRG 640 ==
LOC: EDBD 00:20 → EDSEX 00:20 → ER 00:20 → TELE 06:47 → TELE-WESTW 18:57
PROVIDERS: ADMIT Nurse Practitioner Family; ATTEND Internal Medicine Cardiovascular Disease
DX: E87.1 Hypo-osmolality and hyponatremia (principal); J18.9 Pneumonia, unspecified organism; N39.0 Urinary tract infection, site not specified; M35.81 Multisystem inflammatory syndrome; D64.9 Anemia, unspecified; E78.00 Pure hypercholesterolemia, unspecified; M19.90 Unspecified osteoarthritis, unspecified site; E83.42 Hypomagnesemia; E87.6 Hypokalemia; I10 Essential (primary) hypertension; Z95.0 Presence of cardiac pacemaker
CPT/HCPCS: 36415; 71045; 72131; 73600; 73700; 80053; 80202; 81001; 82565; 83605; 83735; 83880; 84484; 84550; 85025; 85610; 85652; 85730; 86141; 87040; 93005; 93926; 93971; 96365; G0378; J0696; J2405